=== PATIENT | male | born 1985 | race Caucasian/White ===

== ENCOUNTER 2019-07-10 14:59 | Outpatient (CLI) | payer BC, SELFPAY ==
--- NOTE | ~2019-07-10 | MR_ITS ---
EXAMINATION: MR lumbar spine wo con EXAM DATE: 07/10/2019 15:37 INDICATION: Low back pain. TECHNIQUE: Multi-sequential, multiplanar MR images of the lumbar spine were obtained without contrast . Sagittal T1, T2, T2 fat saturation images. Axial T2 weighted images. Correlation is made to lumba r spine x-ray 08/24/2018. FINDINGS: Level by level evaluation: There is 2-3 mm retrolisthesis L4 on L5, 3 to 4 mm anterolisthesis L5 on S1 with mild to moderate disc disease at these 2 levels, bilateral L5 spondylolysis. The conus medull cece terminates at the T12-L1 level and has normal signal intensity and morphology. There are no damaris picious marrow signal abnormalities. Paraspinal soft tissue is unremarkable. L1-L2: Disc does not extend beyond the endplate margin. Facet arthropathy: Minimal. Neural foraminal stenosis: No stenosis. Central canal stenosis: No stenosis. L2-L3: Disc does not extend beyond the endplate margin. Facet arthropathy: Mild. Neural foraminal stenosis: No stenosis. Central canal stenosis: No stenosis. L3-L4: Disc does not extend beyond the endplate margin. Facet arthropathy: Mild. Neural foraminal stenosis: No stenosis. Central canal stenosis: No stenosis. L4-L5: There is a mild to moderate diffuse disc bulge asymmetric to the right Facet arthropathy: Mild to moderate. Neural foraminal stenosis: No stenosis. Central canal stenosis: Mild right lateral recess narrowing. L5-S1: There is a mild diffuse disc bulge. Facet arthropathy: Mild. Neural foraminal stenosis: Mild bilateral. Central canal stenosis: No stenosis. IMPRESSION: 1. L5 spondylolysis. Grade 1 anterolisthesis L5 on S1. 2. Mild to moderate lower lumbar spondylosis. Reviewed, dictated and finalized at location A. [employer]
== END 2019-07-10 15:00 | disposition home or self-care (01) ==
LOC: CHSIMG 15:04
PROVIDERS: PCP Family Medicine; Visit Provider Family Medicine
DX: M54.5 Low back pain (principal)
CPT/HCPCS: 72148

== ENCOUNTER 2021-12-27 15:08 | Outpatient (CLI) | payer BC, SELFPAY ==
[2021-12-27 16:23] LABS: SARS-CoV-2 RNA PCR Negative (Negative)
== END 2021-12-27 15:09 | disposition home or self-care (01) ==
LOC: CHSLAB 15:11
PROVIDERS: PCP Family Medicine; Visit Provider Family Medicine
DX: R05.9 Cough, unspecified (principal); J02.9 Acute pharyngitis, unspecified; Z20.822 Contact with and (suspected) exposure to COVID-19
CPT/HCPCS: C9803; U0003; U0005

== ENCOUNTER 2021-12-28 11:04 | Outpatient (CLI) | payer BC, SELFPAY ==
--- NOTE | ~2021-12-28 | XR_ITS ---
EXAMINATION: XR abdomen obstructive series DATE: 12/28/2021 11:39 INDICATION: Generalized abdominal pain. Fever. Nausea, vomiting, and diarrhea. TECHNIQUE: Upright and supine views of the abdomen on 3 radiographs were obtained. COMPARISON: None. FINDINGS: There is dilated small bowel in the midabdomen. There is mild gaseous distention of the sig moid colon. No free peritoneal gas. IMPRESSION: 1. Dilated small bowel and mildly distended sigmoid colon, consistent with adynamic ileus and/or madhavi l obstruction. Reviewed, dictated and finalized at location A. IMPRESSION: 1. Dilated small bowel and mildly distended sigmoid colon, consistent with adyn amic ileus and/or bowel obstruction.
--- NOTE | ~2021-12-28 | CT_ITS ---
EXAMINATION: CT abdomen pelvis w con DATE: 12/28/2021 13:26 INDICATION: Generalized abdominal pain with 4 days of fever, nausea, vomiting and diarrhea. TECHNIQUE: Computed tomography (CT) of the abdomen and pelvis was performed with 100 mL Omnipaque-350 intravenous contrast. Automated exposure control and iterative reconstruction technique were employe d. The dose-length product was 523.97 mGy-cm. COMPARISON: None FINDINGS: Lung bases are clear. Heart size is normal. No pericardial or pleural effusion. Liver, gallbladder, s pleen, pancreas, bilateral adrenal glands and kidneys are normal. There is fluid throughout the colon consistent with diarrhea. No abnormal bowel wall thickening or dilated bowel to suggest obstruction. Normal appendix. Bladder is normal. No free intraperitoneal gas or fluid. No pathologically enlarged abdominal or pelvic lymphadenopathy. L5 spondylolysis with bilateral pars interarticularis defects. Mild to moderate disc height loss at L4-L5. IMPRESSION: 1. Large amount of fluid throughout nondilated colon consistent with nonspecific diarrhea and likely gastroenteritis. Reviewed, dictated and finalized at location A. IMPRESSION: 1. Large amount of fluid throughout nondilated colon consistent with nonspecifi c diarrhea and likely gastroenteritis.
[2021-12-28 11:28] LABS: Basophils Absolute Auto 0.05 K/mm3 (0.00-0.10); Basophils Percent Auto 0.3 % (0.0-1.0); Hematocrit 46.8 % (40.0-54.0); Hemoglobin 16.7 g/dL (14.0-18.0); Immature Granulocyte Absolute 0.06 K/mm3 (0.00-0.00); Immature Granulocyte Percent A 0.4 % (0.0-0.0); Lymphocytes Absolute Auto 0.76 K/mm3 (1.10-4.50); Lymphocytes Percent Auto 4.8 % (18.0-42.0); Mean Corpuscular HGB Conc 35.7 g/dL (32.0-36.0); Mean Corpuscular Volume 89.7 fL (78.0-102.0); Mean Platelet Volume 9.3 fl (8.7-11.0); Monocytes Absolute Auto 1.02 K/mm3 (0.10-0.90); Monocytes Percent Auto 6.4 % (2.0-11.0); Neutrophils Absolute Auto 14.1 K/mm3 (1.7-7.2); Neutrophils Percent Auto 88.1 % (50.0-70.0); Platelet Count Result 234 K/mm3 (150-420); Red Blood Count 5.22 M/mm3 (4.70-6.10); Red Cell Distribution Width 11.7 % (11.6-14.4)
[2021-12-28 11:29] LABS: Appearance Urine Clear (Clear); Bilirubin Urine 2+ (Negative); Color Urine Dark Yellow (Yellow); Glucose Urine UA Negative (Negative); Ketones Urine 2+ (Negative); Leukocyte Esterase Ur Negative (Negative); Nitrate Urine Negative (Negative); Protein Urine 2+ (Negative); Specific Grav Ur 1.025 (1.010-1.020); Urobilinogen Urine 0.2 mg/dL (0.2-1.0); pH Urine 6.5 (5.0-8.0)
[2021-12-28 11:35] LABS: Add Urine Microscopic? YES; Blood Urine Trace-lysed (Negative); RBC Urine 0-2 /hpf (0-2); WBC Urine None seen /hpf (0-3)
[2021-12-28 11:36] LABS: Bacteria Urine Trace /hpf; Mucus Urine Moderate /lpf
[2021-12-28 11:43] LABS: Alanine Aminotransferase 36 U/L (16-63); Albumin Level 3.9 g/dL (3.4-5.0); Alkaline Phosphatase 76 U/L (46-116); Amylase 16 U/L (25-115); Anion Gap 13 mmol/L (8-16); Aspartate Amino Transferase 17 U/L (15-37); Bilirubin,Total 0.6 mg/dL (0.00-1.00); Blood Urea Nitrogen 11 mg/dL (7-18); Calcium 9.8 mg/dL (8.5-10.1); Carbon Dioxide 25 mmol/L (21-32); Chloride 94 mmol/L (98-108); Creatine Kinase 48 U/L (39-308); Estimated Glomerular Filt Rate 53; Glucose 124 mg/dL (70-99); Lipase 54 U/L (73-393); Osmolality Calculated 274 mOsm/kg (285-295); Potassium 3.1 mmol/L (3.5-5.1); Sodium 132 mmol/L (136-145); Total Protein 8.8 g/dL (6.4-8.2)
== END 2021-12-28 11:05 | disposition home or self-care (01) ==
PROVIDERS: PCP Family Medicine; Visit Provider Family Medicine
DX: R11.10 Vomiting, unspecified (principal); R10.84 Generalized abdominal pain; K56.7 Ileus, unspecified
CPT/HCPCS: 36415; 74019; 74177; 80053; 81001; 82150; 82550; 83690; 85025; 87040; 87086; Q9967